=== PATIENT | female | born 1940 | race Hispanic/Latino ===

== ENCOUNTER 2016-12-05 08:07 | Day surgery (SDC) | payer MEDICARE, OTHER ==
[2016-11-28 09:56] VITALS: BMI 27.2
[2016-12-05] MEDS ORDERED: Propofol 10 mg/ml Inj (20 ML) ONE (12:02)
[2016-12-05] MEDS ORDERED: Midazolam 2 MG/2 ML VIAL ONE (12:02)
[2016-12-05] MEDS ORDERED: Lactated Ringer's 1,000 ML IV ONE (12:05)
[2016-12-05] MEDS ORDERED: HYDROmorphone 0.5 mg/0.5 ml ISec IVP PRN (12:33)
[2016-12-05 14:46] VITALS: BP 129/61; PULSE 79; RESP 15; TEMP 97.6; O2SAT 95
--- NOTE | 2016-12-05 19:32 | PCM.SURG1 ---
Surgeon's Initial Post Op Note - Surgeon's Notes Surgeon: Juliette Sung MD [employer] Operator: none Type of Anesthesia: General LMA Pre-Operative Diagnosis: postmenopausel bleeding Operative Findings: stage IV cervical uterine prolapase, bilateral ostia visluzed, no gross masses, normal appearing cervix Post-Operative Diagnosis: same as above Operation Performed: Operative hysteroscopy, fractional dilation and currettage Specimen/Specimens Removed: endocervical currettings, endometrial currettings Estimated Blood Loss: EBL {In ML}: 5 Blood Products Given: N/A Drains Used: No Drains Post-Op Condition: Good Date of Surgery/Procedure: 12/05/16 Time of Surgery/Procedure: 12:00
--- NOTE | 2016-12-18 11:31 | PCM.OP ---
Operative Report - Operative Report Date of Surgery/Procedure: 12/05/16 Time of Surgery/Procedure: 12:00 Surgeon: Juliette Sung Anesthesia/Sedation: General Pre-Operative Diagnosis: Postmenopausal bleeding Post-Operative Diagnosis: Postmenopausal bleeding Indication for Surgery: post menopausal bleeding need to do biopsy to rule out endometrial hyperplasik, cancer and determine etiology Operative Findings: Stage 4 cervical uterine prolapse, bilateral ostial visualized, no gross masses, normal appearing cervix despite prolapsed Procedure/Operation Description: Patient was taken to the operating room where she was given general anesthesia. Once anesthesia was obtaine dwithout difficulty , the patient was positioned on the operating table in the doral supine potion with the legs supported using strrrup/ The patient was then prepped and draped in the usual normal sterile fashion. Timeout was performed to confimr correct patient adn correct procedure. The prolapse was then reduced and the center tract was placed in the anterior post-cervical vagina, the cervix was visualized. Endo cervical currettins were obtained with a a [employer] currette and sent ot pathlogy on [facility]. The uterus was then sounded to 6 cm, and the cervix was sequentially dilated carefully to allow for hysteroscocope to be entreed under direct visualization using normal_saline as distnesion media__. Upon visualization bilateral ostial visualized and there was a white thickening in between and throughout the cavity. Hysteroscope was removed. The endometrial findings were obtained with a curette and sent to pathology on [facility]. All instruments were removed___. At the end of the procedure , all needle sponge and instrument counts wewre noted to b correct x 2. patient was able to tolerate the procedure, and was transferred to the recovery in stable condition. Estimated Blood Loss: 5mL. Complications: None Discharge & Condition: stable
== END 2016-12-05 14:32 | disposition home or self-care (01) ==
LOC: C.SDS 08:07
PROVIDERS: ATTEND Obstetrics & Gynecology
DX: N95.0 Postmenopausal bleeding (principal); N81.4 Uterovaginal prolapse, unspecified
CPT/HCPCS: 58558; 88305; J2250; J2405; J2704; J3010; J7120